=== PATIENT | female | born 1960 | race Two or more races ===

== ENCOUNTER 2019-06-09 01:12 | Emergency (ER) | payer SELFPAY ==
[~2019-06-09] VITALS: Ht 152.4 cm; Wt 47.0 kg
[2019-06-09] MEDS ORDERED: IV NORMAL SALINE 1000ML BAG 1,000 ML IV SCH (02:00)
[2019-06-09 02:12] LABS: BASO % 0 % (0-3); EOS % 0 % (0-3); HEMATOCRIT 37.3 % (36.0-47.0); HEMOGLOBIN 12.6 g/dL (12.0-15.5); LYMPH % 10 % (24-48); MEAN CORPUSCULAR HEMOGLOBIN 28 pg (25-35); MEAN CORPUSCULAR HGB CONC 34 g/dL (31-37); MEAN CORPUSCULAR VOLUME 83 fL (79-100); MONO # 0.8 x10^3/uL (0.0-1.1); MONO % 8 % (0-9); NEUT # 8.5 x10^3/uL (1.8-7.7); NEUT % 82 % (31-73); PLATELET COUNT 327 x10^3/uL (140-400); RED BLOOD COUNT 4.48 x10^6/uL (3.50-5.40); RED CELL DISTRIBUTION WIDTH 12.1 % (11.5-14.5); WHITE BLOOD COUNT 10.4 x10^3/uL (4.0-11.0)
[2019-06-09 02:22] LABS: CALCIUM 8.7 mg/dL (8.5-10.1); CREATININE 0.8 mg/dL (0.6-1.0); GFR 73.7; POTASSIUM 4.1 mmol/L (3.5-5.1)
[2019-06-09 02:28] LABS: ALBUMIN/GLOBULIN RATIO 0.7 (1.0-1.7); TOTAL BILIRUBIN 0.7 mg/dL (0.2-1.0); TOTAL PROTEIN 7.4 g/dL (6.4-8.2)
[2019-06-09] MEDS ORDERED: DICL50TA4 PO (02:37)
--- NOTE | 2019-06-09 02:37 | PHYS DOC ---
Past Medical History Past Medical History: No Pertinent History Smoking Status: Never Smoker Alcohol Use: None General Adult EDM: Chief Complaint: SHORTNESS OF BREATH HPI: HPI: Patient is a 58 year old female who presents with report of cough and some upper back pain for the last couple days. Patient indicates concern that she thinks she may have taken too much of her amoxicillin, having taken 2 doses today. She states that the pain in her upper back is a 4 out of 10. She denies any vomiting or diarrhea. She denies any fever. Patient states that she was recently started on the amoxicillin but doesn't know what was prescribed for. Language interpretation line was utilized; however, history was very difficult to obtain as patient had difficulty in understanding and explaining symptoms to the university services program associate.[] Review of Systems: Review of Systems: Constitutional: Denies fever or chills. [] Respiratory: Positive cough without shortness of breath. [] Cardiovascular: Denies chest pain or edema. [] GI: Denies abdominal pain, nausea, vomiting, bloody stools or diarrhea. [] Musculoskeletal: Complains of upper back pain. [] Integument: Denies rash. [] Neurologic: Denies headache, focal weakness or sensory changes. [] Heart Score: Risk Factors: Risk Factors: DM, Current or recent (<one month) smoker, HTN, HLP, family history of CAD, obesity. Risk Scores: Score 0 - 3: 2.5% MACE over next 6 weeks - Discharge Home Score 4 - 6: 20.3% MACE over next 6 weeks - Admit for Clinical Observation Score 7 - 10: 72.7% MACE over next 6 weeks - Early Invasive Strategies Current Medications: Current Medications Medications (Trade) Dose Ordered Sig/Saulo Start Time Stop Time Status Last Admin Dose Admin Sodium Chloride 1,000 ml @ 1,000 mls/hr Q1H 06/09/19 02:00 06/09/19 02:59 Allergies: Allergies: Allergies Coded Allergies Type Severity Reaction Last Updated Verified Unable to Assess 06/09/19 No Physical Exam: PE: Constitutional: Well developed, well nourished, no acute distress, non-toxic appearance. [] HENT: Normocephalic, atraumatic, bilateral external ears normal, oropharynx moist, no oral exudates, nose normal. [] Eyes: PERRLA, EOMI, conjunctiva normal, no discharge. [] Neck: Normal range of motion, no tenderness, supple, no stridor. [] Cardiovascular: Regular rate and rhythm[] Lungs & Thorax: Bilateral breath sounds clear to auscultation [] Abdomen: Bowel sounds normal, soft, no tenderness. [] Skin: Warm, dry, no erythema, no rash. [] Back: There is tenderness to palpation in the upper thoracic and trapezius musc ulature. [] Extremities: No tenderness, no cyanosis, no clubbing, ROM intact, no edema. [] Neurologic: Awake and alert, no focal deficits noted. [] Current Patient Data: Labs: Laboratory Tests Test 06/09/19 02:00 White Blood Count 10.4 x10^3/uL (4.0-11.0) Red Blood Count 4.48 x10^6/uL (3.50-5.40) Hemoglobin 12.6 g/dL (12.0-15.5) Hematocrit 37.3 % (36.0-47.0) Mean Corpuscular Volume 83 fL (79-100) Mean Corpuscular Hemoglobin 28 pg (25-35) Mean Corpuscular Hemoglobin Concent 34 g/dL (31-37) Red Cell Distribution Width 12.1 % (11.5-14.5) Platelet Count 327 x10^3/uL (140-400) Neutrophils (%) (Auto) 82 % (31-73) H Lymphocytes (%) (Auto) 10 % (24-48) L Monocytes (%) (Auto) 8 % (0-9) Eosinophils (%) (Auto) 0 % (0-3) Basophils (%) (Auto) 0 % (0-3) Neutrophils # (Auto) 8.5 x10^3/uL (1.8-7.7) H Lymphocytes # (Auto) 1.0 x10^3/uL (1.0-4.8) Monocytes # (Auto) 0.8 x10^3/uL (0.0-1.1) Eosinophils # (Auto) 0.0 x10^3/uL (0.0-0.7) Basophils # (Auto) 0.0 x10^3/uL (0.0-0.2) Sodium Level 130 mmol/L (136-145) L Potassium Level 4.1 mmol/L (3.5-5.1) Chloride Level 93 mmol/L (98-107) L Carbon Dioxide Level 26 mmol/L (21-32) Anion Gap 11 (6-14) Blood Urea Nitrogen 12 mg/dL (7-20) Creatinine 0.8 mg/dL (0.6-1.0) Estimated GFR (Cockcroft-Gault) 73.7 BUN/Creatinine Ratio 15 (6-20) Glucose Level 466 mg/dL (70-99) H Calcium Level 8.7 mg/dL (8.5-10.1) Total Bilirubin 0.7 mg/dL (0.2-1.0) Aspartate Amino Transferase (AST) 27 U/L (15-37) Alanine Aminotransferase (ALT) 32 U/L (14-59) Alkaline Phosphatase 108 U/L (46-116) Total Protein 7.4 g/dL (6.4-8.2) Albumin 3.0 g/dL (3.4-5.0) L Albumin/Globulin Ratio 0.7 (1.0-1.7) L Laboratory Tests 06/09/19 02:00 Laboratory Tests 06/09/19 02:00 Vital Signs: Vital Signs Date Time Temp Pulse Resp B/P (MAP) Pulse Ox O2 Delivery O2 Flow Rate FiO2 06/09/19 01:28 98.7 90 16 142/62 (88) 96 Room Air 98.7 EKG: EKG: [] Radiology/Procedures: Radiology/Procedures: [] Course & Med Decision Making: Course & Med Decision Making Pertinent Labs and Imaging studies reviewed. (See chart for details) [] Dragon Disclaimer: Dragsharlene Disclaimer: This electronic medical record was generated, in whole or in part, using a voice recognition dictation system. Departure Departure Impression: Primary Impression: Upper respiratory infection Qualified Codes: J06.9 - Acute upper respiratory infection, unspecified Additional Impressions: Upper back pain Hyperglycemia due to diabetes mellitus Disposition: HOME, SELF-CARE Condition: STABLE Referrals: NOLVIA CATALAN MD (PCP) Patient Instructions: Back Pain, Adult, Type 2 Diabetes Mellitus, Adult, Upper Respiratory Infection, Adult Scripts Diclofenac Sodium (DICLOFENAC SODIUM) 50 Mg Tablet. 1 TAB PO BID PRN for PAIN, #20 TAB Prov: WILVER DONG Jr. DO 06/09/19 WILVER DONG Jr., DO Jun 09, 2019 02:37
[2019-06-09] MEDS ORDERED: AZITHROMYCIN 250 MG TABLET. PO ONE (03:00)
[2019-06-09] MEDS ORDERED: INSULIN REGULAR 100 UNIT/ML 3ML VIAL. IV ONE (03:00)
[2019-06-09] MEDS ORDERED: cefTRIAXone IV Push 1 GM VIAL. IVP ONE (03:00)
[2019-06-09] MEDS ORDERED: AZIT250T PO (04:12)
[2019-06-09 04:45] VITALS: BP 128/75
--- NOTE | 2019-06-09 06:32 | EKG ---
[facility] [address] [place] [address] Test Date: 2019-06-09 Test Time: 01:35:23 Pat Name: REZA GARCIA Department: Room: Gender: F [employer]: : 1960 Requested By: WILVER DONG Order Number: [id number] Reading MD: Marcelo Robert Measurements Intervals Elaine Rate: 97 P: 43 CA: 126 QRS: 36 QRSD: 80 T: 39 QT: 330 QTc: 423 Interpretive Statements SINUS RHYTHM LEFT ATRIAL ABNORMALITY Electronically Signed On 06-09-2019 8:49:15 CDT by Marcelo Robert
--- NOTE | 2019-06-09 09:08 | RAD ---
Examination: PORTABLE CHEST 1V History: Cough Comparison/Correlation: 06/30/2015 AP view of the chest Findings: Upright portable frontal view of the chest was obtained. Heart size is normal. Subtle opacity at the left lateral lower lung clark is present. Subtle interstitial thickening of the lung clark is present a limited pulmonary inflation is noted. Bony structures are unremarkable. Impression: Focal opacity the left lateral lower lung field. Interval follow-up 2 view chest x-ray exam to assess for resolution is recommended. Electronically signed by: Jose Alfredo Roldan MD (06/09/2019 9:05 AM) [id number]
== END 2019-06-09 04:55 | disposition home or self-care (01) ==
LOC: ER 01:12
DX: J06.9 Acute upper respiratory infection, unspecified (principal); M54.6 Pain in thoracic spine; R05 Cough; E11.65 Type 2 diabetes mellitus with hyperglycemia
CPT/HCPCS: 36415; 71045; 80053; 82962; 85025; 93005; 96361; 96374; 96375; 99285; J0696; J1815; J7030

== ENCOUNTER 2020-02-11 16:06 | Emergency (ER) | payer BC ==
[~2020-02-11] VITALS: Ht 149.9 cm; Wt 47.2 kg
[~2020-02-11 16:06] MED LIST: AZIT250T PO; DICL50TA4 PO
[2020-02-11 16:25] VITALS: BP 128/58
[2020-02-11] MEDS ORDERED: NAPROXEN 500 MG TABLET PO STA (16:41)
[2020-02-11] MEDS ORDERED: DIPH,PERTUSS(ACELL),TET VAC/PF 0.5 ML SYRINGE. VAX IM ONE (16:45)
[2020-02-11] MEDS ORDERED: HYDROcodone/APAP 5/325MG 1 TAB TABLET PO ONE (16:45)
[2020-02-11] MEDS ORDERED: HYDR-3164 PO (16:48)
[2020-02-11] MEDS ORDERED: SULF1TAB24 PO (16:48)
[2020-02-11] MEDS ORDERED: NAPR-514 PO (16:48)
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
[2020-02-11] MEDS ORDERED: SMZ/TMP 800/160MG TABLET. PO ONE (17:00)
== END 2020-02-11 17:07 | disposition home or self-care (01) ==
LOC: ER 16:06
DX: L03.011 Cellulitis of right finger (principal); E11.9 Type 2 diabetes mellitus without complications
CPT/HCPCS: 10060; 90471; 90715; 99284-25

== ENCOUNTER 2020-02-22 12:55 | Inpatient (IN) | payer BC ==
[~2020-02-22] VITALS: Ht 162.6 cm; Wt 48.0 kg
[~2020-02-22 12:55] MED LIST changes: +HYDR-3164 PO; +NAPR-514 PO; +SULF1TAB24 PO
[2020-02-22] MEDS ORDERED: IV NORMAL SALINE 1000ML BAG 1,000 ML IV ONE (15:15)
[2020-02-22 15:30] LABS: BASO % 0 % (0-3); EOS # 0.2 x10^3/uL (0.0-0.7); EOS % 3 % (0-3); HEMATOCRIT 40.4 % (36.0-47.0); HEMOGLOBIN 13.7 g/dL (12.0-15.5); LYMPH # 2.9 x10^3/uL (1.0-4.8); LYMPH % 32 % (24-48); MEAN CORPUSCULAR HEMOGLOBIN 28 pg (25-35); MEAN CORPUSCULAR HGB CONC 34 g/dL (31-37); MEAN CORPUSCULAR VOLUME 84 fL (79-100); MONO # 0.5 x10^3/uL (0.0-1.1); MONO % 6 % (0-9); NEUT # 5.3 x10^3/uL (1.8-7.7); NEUT % 59 % (31-73); PLATELET COUNT 275 x10^3/uL (140-400); RED BLOOD COUNT 4.83 x10^6/uL (3.50-5.40); RED CELL DISTRIBUTION WIDTH 12.1 % (11.5-14.5)
[2020-02-22] MEDS ORDERED: VANCOMYCIN PER PHARMACY MC PRN ×2 (15:30→23:45)
[2020-02-22 15:56] LABS: ANION GAP 10 (6-14); BLOOD UREA NITROGEN 8 mg/dL (7-20); BUN/CREATININE RATIO 16 (6-20); CALCIUM 9.2 mg/dL (8.5-10.1); CARBON DIOXIDE 25 mmol/L (21-32); CHLORIDE 98 mmol/L (98-107); CREATININE 0.5 mg/dL (0.6-1.0); GFR 126.3; GLUCOSE 306 mg/dL (70-99); POTASSIUM 4.2 mmol/L (3.5-5.1); SODIUM 133 mmol/L (136-145)
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
[2020-02-22] MEDS ORDERED: VANCOMYCIN 1.25 GM in IV NORMAL SALINE 250ML 250 ML IV ONE (16:00)
[2020-02-22 16:19] LABS: ALBUMIN 3.9 g/dL (3.4-5.0); ALBUMIN/GLOBULIN RATIO 1.1 (1.0-1.7); ALK PHOS 122 U/L (46-116); ALT (SGPT) 28 U/L (14-59); AST (SGOT) 19 U/L (15-37); TOTAL BILIRUBIN 0.5 mg/dL (0.2-1.0); TOTAL PROTEIN 7.5 g/dL (6.4-8.2)
[2020-02-22 16:24] LABS: C-REACTIVE PROTEIN < 0.5 mg/L (0-3.3)
[2020-02-22] MEDS ORDERED: CLINDAMYCIN 600MG PREMIX 50 ML IV ONE (16:30)
[2020-02-22 16:36] LABS: BILIRUBIN,URINE NEGATIVE (NEG); CLARITY,URINE CLEAR; COLOR,URINE YELLOW; NITRITE,URINE NEGATIVE (NEG); PROTEIN,URINE NEGATIVE (NEG-TRACE); UROBILINOGEN,URINE 0.2 mg/dL (0.2 mg/dL)
[2020-02-22 16:53] LABS: BACTERIA,URINE 0 /HPF (0-FEW); RBC,URINE 0 /HPF (0-2)
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
[2020-02-22] MEDS ORDERED: PIPERACILLIN/TAZOBACTAM 3.375 GM in IV NORMAL SALINE 50ML 50 ML IV ONE (18:00)
[2020-02-22] MEDS ORDERED: ONDANSETRON PF 4 MG/2 ML VIAL. IV PRN ×2 (18:00→23:45)
[2020-02-22] MEDS: IV NORMAL SALINE 1000ML BAG 1,000 ML IV SCH (18:30)
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
--- NOTE | 2020-02-22 19:26 | NUR ---
Pharmacy Vancomycin Dosing Note S:Consulted to monitor and dose vancomycin started 02/22/20. O:REZA GARCIA is a 59 year old F with Osteomyelitis Height: 4 feet, 5 inches Weight: 45.5 kg [place] Body Weight: 29.40 Adjusted Body Weight: 35.84 Dosing Weight: Actual Other Antibiotics: LABS: Last BUN: 8 Last Creatinine: 0.5 Creatinine Clearance: 85 mL/min Last WBC: 9 Last Procalcitonin: Tmax (past 24 hours): 97.6 Microbiology: I/O: 1300/- Drug Levels: Last level: on at Last dose given 02/22/20 at 1552 Vancomycin Dosing: Loading Dose: 1250 mg x1 Dosing Weight: Actual Target Trough: 15-20 A: Based on: weight and renal function P: 1. Begin Vancomycin 750 mg IV q12h 2. Follow up Trough level on 02/24/20 at 1530 3. Pharmacy will continue to monitor, follow and adjust therapy as needed. Re Chinchilla RPH, 02/22/20 [id number]
[2020-02-22 20:25] VITALS: BP 111/60
[2020-02-22 23:29] VITALS: BP 105/55
[2020-02-22] MEDS ORDERED: PIP/TAZO PER PHARMACY MC PRN (23:45)
[2020-02-22] MEDS: INSULIN GLARGINE SYRINGE. SQ SCH (23:45)
[2020-02-22] MEDS ORDERED: DEXTROSE 50% 25 GM / 50ML DISP.SYRIN. IV PRN (23:45)
[2020-02-23] VITALS (9 sets, daily range): BP systolic 95–143; BP diastolic 51–69
--- NOTE | 2020-02-23 00:32 | NUR ---
Patient admitted to room 428. Picture taken of right middle finger. Patient states that she has not had a previous wound. Patient stated that the skin on her finger tips crack alot during her shift. 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 Patient states she does not take insulin at home. Patient states she is suppose to be taking another medication for diabetes that is 10mg daily but has been unable to get that medication filled. Patient states she changes the dose of her metformin to 1500mg twice a day to try and manage her diabetes better. Patient educated on policies and procedures of unit. Patient primarily speaks iraqi. Patient verbalized understanding of education provided. Will continue to monitor.
[2020-02-23] MEDS: PIPERACILLIN/TAZOBACTAM 3.375 GM in IV NORMAL SALINE 50ML 50 ML IV SCH ×4 (01:13→17:15)
[2020-02-23] MEDS: IV NORMAL SALINE 1000ML BAG 1,000 ML IV SCH ×2 (02:00→12:02)
[2020-02-23] MEDS ORDERED: INFLUENZA VAX SCREEN BY RX. MC PRN (02:45)
[2020-02-23] MEDS ORDERED: LEVO-101 PO (02:54)
[2020-02-23] MEDS ORDERED: METF100010 PO (02:54)
[2020-02-23] MEDS: VANCOMYCIN 750 MG in IV NORMAL SALINE 250ML 250 ML IV SCH ×2 (04:30→15:14)
[2020-02-23] MEDS: INSULIN LISPRO 100 UNIT/ML 3ML VIAL for OP,RR ONLY. SQ PRN ×2 (07:19→10:33)
[2020-02-23] MEDS ORDERED: fentaNYL PF VIAL 100 MCG/2 ML VIAL ONE ×3 (07:19→07:50)
[2020-02-23] MEDS ORDERED: LIDOCAINE 2% PF 5 ML VIAL. ONE (07:24)
[2020-02-23] MEDS ORDERED: PROPOFOL 10 MG/ML (20ML) VIAL. IV ONE (07:24)
[2020-02-23] MEDS ORDERED: BUPIVACAINE-EPI 0.25%-1:200000 MPF 30 ML VIAL. INJ ONE (07:30)
[2020-02-23] MEDS ORDERED: fentaNYL PF VIAL 100 MCG/2 ML VIAL IV PRN ×3 (07:30→10:00)
[2020-02-23 07:43] LABS: CREATININE 0.6 mg/dL (0.6-1.0); GFR 102.3
[2020-02-23] MEDS: fentaNYL PF VIAL 100 MCG/2 ML VIAL IV PRN (07:53)
[2020-02-23] MEDS: INSULIN LISPRO 300 UNITS/3 ML VIAL. SQ SCH ×3 (08:00→17:22)
[2020-02-23] MEDS ORDERED: DEXAMETHASONE SOD PHOS 4 MG/ML VIAL ONE (09:02)
[2020-02-23] MEDS ORDERED: ONDANSETRON PF 4 MG/2 ML VIAL. ONE (09:02)
[2020-02-23] MEDS ORDERED: SEVOFLURANE 61 TO 120 MINUTES. IH ONE (09:09)
--- NOTE | 2020-02-23 09:52 | NUR ---
SW following. Discussed with RN, pt from home, room air, NPO, rapid COVID-19 negative. Pt having an I&D this morning. SW will continue to follow.
[2020-02-23] MEDS ORDERED: IV RINGERS,LACTATED 1000ML 1,000 ML IV SCH (10:00)
[2020-02-23] MEDS ORDERED: HYDROmorphone 2 MG/ML VIAL IV PRN (10:00)
[2020-02-23] MEDS ORDERED: ONDANSETRON PF 4 MG/2 ML VIAL. IV PRN (10:00)
[2020-02-23] MEDS ORDERED: PROCHLORPERAZINE 10 MG/2 ML VIAL. IV PRN (10:00)
[2020-02-23] MEDS ORDERED: MORPHINE SULFATE 2 MG/ML VIAL. IV PRN (10:00)
[2020-02-23] MEDS ORDERED: LIDOCAINE 1% PF 2 ML VIAL. ID PRN (10:00)
--- NOTE | 2020-02-23 10:40 | PDOC4 ---
Operative Note Operative Note Date of Procedure: February 23, 2020 Pre-Op Diagnosis: Acute hematogenous osteomyelitis, right hand, (right middle finger distal phalanx) M86.041 Post-Op Diagnosis: Same Procedure: Right middle finger, primary amputation, distal interphalangeal joint with neurectomies and direct closure. CPT 68441 Surgeon: Shaun Rodriguez MD Anesthesia: General EBL: 10 mL Specimens Obtained: Cultures aerobic and anaerobic with Gram stain. Fingertip for permanent specimen. 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 She started having trouble with her finger at work in January, approximately Feb 04, with increasing pain and swelling, and said she tried several times to report this at her work. She went on a Friday evening and the workers office was closed. She again went on Friday to reported and they were closed. 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 She said the riprap placing supervisor refused to fill out any paperwork and ultimately assigned her to a different job detail so that the fingertip problem did not interfere with her work as much. She has had increasing pain and swelling in the last few days, and came to the emergency room. She was admitted yesterday with necrosis of the fingertip and osteomyelitis seen on x-ray. She is on intravenous antibiotics. I examined her and spoke to her in detail today 02/23/2020. She has nonviable tissue at the fingertip and extensive bone osteomyelitis of the fingertip. Initially I thought a debridement might be useful but on further examination I don't think that will be successful and ultimately she will require fingertip amputation to resolve the infection and allow closure of the wound. I spoke to her today in detail about fingertip amputation via the shank tapper, and recommended distal interphalangeal joint partial finger amputation, with the direct closure and neurectomies. This should resolve the infection quickly and allow her to return to work more quickly, and prevent prolonged and probably unsuccessful treatment with debridement alone. We talked about the potential risks and the cosmetic deformity and I showed her photographs from the Internet of the healed fingertip amputation. All of her questions about surgery were answered and she desired to proceed. Written consent was obtained. The surgical site was marked by . Procedure in Detail: The patient was identified in the preoperative holding area. The correct right middle finger was marked by me. The patient was taken to the operating room where general anesthesia was used. The patient was positioned supine on the operating table with the arm extended on an arm board. A timeout procedure was performed. The limb was prepared in sterile fashion with Betadine. Sterile drapes were applied. A Matteo tourniquet was used around the base of the finger and secured with a hemostat. A 15 blade was used to make an incision in the distal phalanx, and the portion of the finger to be amputated, and purulent drainage was noted. Cultures were taken. [place] flaps were then planned with a skin marker, and then created with a 15 blade scalpel. Sharp dissection was used, and the interphalangeal joint was disarticulated with a 15 blade scalpel. Additional purulent material and debridement was performed with rongeurs and with a 15 blade scalpel. Betadine lavage was used. Copious saline irrigation was used. The skin flaps were now trimmed and fashioned for an ultimately smooth tension- free cosmetic closure. The tourniquet was released. Electrocautery was used for hemostasis. 0.25% Marcaine with epinephrine was injected at the skin edges, as well as in a digital block fashion. Copious saline irrigation was again used. The fingertip was now closed in a single layer with #4-0 Prolene interrupted sutures, with complete closure. I then applied Xeroform, and TubeGauze. Needle and sponge counts were correct. There were no apparent complications. SHAUN RODRIGUEZ MD Feb 23, 2020 10:40
[2020-02-23] MEDS: MULTIVITAMIN with MINERAL TABLET. PO SCH (12:06)
[2020-02-23] MEDS ORDERED: FLU VACC QS 2020-21(6MOS+)/PF 0.5 ML SYRINGE. VAX IM ONE (18:30)
[2020-02-23] MEDS: INSULIN GLARGINE SYRINGE. SQ SCH (21:00)
--- NOTE | 2020-02-23 23:05 | PDOC ---
PROGRESS NOTES Date of Service: DATE: 02/23/20 TIME: 2100 Chief Complaint Chief Complaint Right 3rd finger cellulitis - with abscess. Will likely need surgical I&D. Pain control, Add zosyn for gram negative coverage, cont vancomycin. 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 She states that sharp and shooting. Notes the dorsum of finger and now her hand are red, swollen, hot, and having sharp shooting pains. Patient was seen for this on February 10 and given bactrim for paronychia. Patient rates her pain at 9 out of 10. Patient denies fevers, nausea or vomiting, chills. Right Hand radiograph with absent cortex along the proximal radial aspect of the third distal phalanx with overlying soft tissue swelling, concerning for osteomyelitis. Labs with WBC 9, Hb 13.7, platelets 275, Na 133, K 4.2, BUN 8, Cr 0.5, Lactate 1.5, glucose 306. Admitted for further treatment. 02/23: patient tolerated procedure well, no other complaints other than feeling her fingertips are getting dry and cracking. No fever or chills, pain seems to be well tolerated Vitals Vitals Vital Signs Date Time Temp Pulse Resp B/P (MAP) Pulse Ox O2 Delivery O2 Flow Rate FiO2 02/23/20 19:00 98.6 82 16 107/62 (77) 97 Room Air 98.6 02/23/20 09:45 5 Physical Exam General: Alert, Cooperative Heart: Regular rate Abdomen: Soft Extremities: Other (The right middle finger has necrosis at the fingertip. There is swelling and tenderness. There is loss of fingertip sensation. There is friable skin and slight purulent drainage. There is no flexor tenosynovitis or Knavel signs other than the swelling at the fingertip.) Skin: No breakdown, No significant lesion, Other (Posterior hand is pink in color and right tip of the middle fingertip from tip of the finger down to to DIP has peeling skin, redness, paleness, black spot that is about dime sized. Radial pulses strong and present. Patient can barely bend the finger due to swelling. Skin is otherwise pink warm and dry. ) Labs LABS Laboratory Tests Test 02/23/20 05:50 02/23/20 07:13 02/23/20 08:42 02/23/20 10:30 Creatinine 0.6 mg/dL (0.6-1.0) Estimated GFR (Cockcroft-Gault) 102.3 Glucose (Fingerstick) 296 mg/dL (70-99) 213 mg/dL (70-99) 213 mg/dL (70-99) Test 02/23/20 13:09 02/23/20 16:32 02/23/20 20:11 Glucose (Fingerstick) 237 mg/dL (70-99) 303 mg/dL (70-99) 292 mg/dL (70-99) Assessment and Plan Assessmemt and Plan Problems Medical Problems: (1) Osteomyelitis Status: Acute Comment Review of Relevant I have reviewed the following items vangie (where applicable) has been applied. Labs Laboratory Tests Test 02/22/20 14:45 02/22/20 16:25 02/22/20 19:30 02/23/20 05:50 White Blood Count 9.0 x10^3/uL (4.0-11.0) Red Blood Count 4.83 x10^6/uL (3.50-5.40) Hemoglobin 13.7 g/dL (12.0-15.5) Hematocrit 40.4 % (36.0-47.0) Mean Corpuscular Volume 84 fL (79-100) Mean Corpuscular Hemoglobin 28 pg (25-35) Mean Corpuscular Hemoglobin Concent 34 g/dL (31-37) Red Cell Distribution Width 12.1 % (11.5-14.5) Platelet Count 275 x10^3/uL (140-400) Neutrophils (%) (Auto) 59 % (31-73) Lymphocytes (%) (Auto) 32 % (24-48) Monocytes (%) (Auto) 6 % (0-9) Eosinophils (%) (Auto) 3 % (0-3) Basophils (%) (Auto) 0 % (0-3) Neutrophils # (Auto) 5.3 x10^3/uL (1.8-7.7) Lymphocytes # (Auto) 2.9 x10^3/uL (1.0-4.8) Monocytes # (Auto) 0.5 x10^3/uL (0.0-1.1) Eosinophils # (Auto) 0.2 x10^3/uL (0.0-0.7) Basophils # (Auto) 0.0 x10^3/uL (0.0-0.2) Sodium Level 133 mmol/L (136-145) Potassium Level 4.2 mmol/L (3.5-5.1) Chloride Level 98 mmol/L (98-107) Carbon Dioxide Level 25 mmol/L (21-32) Anion Gap 10 (6-14) Blood Urea Nitrogen 8 mg/dL (7-20) Creatinine 0.5 mg/dL (0.6-1.0) 0.6 mg/dL (0.6-1.0) Estimated GFR (Cockcroft-Gault) 126.3 102.3 BUN/Creatinine Ratio 16 (6-20) Glucose Level 306 mg/dL (70-99) Lactic Acid Level 1.5 mmol/L (0.4-2.0) Calcium Level 9.2 mg/dL (8.5-10.1) Total Bilirubin 0.5 mg/dL (0.2-1.0) Aspartate Amino Transf (AST/SGOT) 19 U/L (15-37) Alanine Aminotransferase (ALT/SGPT) 28 U/L (14-59) Alkaline Phosphatase 122 U/L (46-116) C-Reactive Protein, Quantitative < 0.5 mg/L (0-3.3) Total Protein 7.5 g/dL (6.4-8.2) Albumin 3.9 g/dL (3.4-5.0) Albumin/Globulin Ratio 1.1 (1.0-1.7) Urine Collection Type Unknown Urine Color Yellow Urine Clarity Clear Urine pH 6.0 (<5.0-8.0) Urine Specific Ary 1.010 (1.000-1.030) Urine Protein Negative mg/dL (NEG-TRACE) Urine Glucose (UA) >=1000 mg/dL (NEG) Urine Ketones (Stick) Negative mg/dL (NEG) Urine Blood Negative (NEG) Urine Nitrite Negative (NEG) Urine Bilirubin Negative (NEG) Urine Urobilinogen Dipstick 0.2 mg/dL (0.2 mg/dL) Urine Leukocyte Esterase Small (NEG) Urine RBC 0 /HPF (0-2) Urine WBC 1-4 /HPF (0-4) Urine Squamous Epithelial Cells Mod /LPF Urine Renal Epithelial Cells Occ /LPF Urine Bacteria 0 /HPF (0-FEW) SARS-CoV-2 Antigen (Rapid) Negative (NEGATIVE) Test 02/23/20 07:13 02/23/20 08:42 02/23/20 10:30 02/23/20 13:09 Glucose (Fingerstick) 296 mg/dL (70-99) 213 mg/dL (70-99) 213 mg/dL (70-99) 237 mg/dL (70-99) Test 02/23/20 16:32 02/23/20 20:11 Glucose (Fingerstick) 303 mg/dL (70-99) 292 mg/dL (70-99) Laboratory Tests Test 02/23/20 05:50 02/23/20 07:13 02/23/20 08:42 02/23/20 10:30 Creatinine 0.6 mg/dL (0.6-1.0) Estimated GFR (Cockcroft-Gault) 102.3 Glucose (Fingerstick) 296 mg/dL (70-99) 213 mg/dL (70-99) 213 mg/dL (70-99) Test 02/23/20 13:09 02/23/20 16:32 02/23/20 20:11 Glucose (Fingerstick) 237 mg/dL (70-99) 303 mg/dL (70-99) 292 mg/dL (70-99) Microbiology 02/23/20 Gram Stain - Final, Resulted 02/23/20 Aerobic and Anaerobic Culture, Resulted Pending 02/22/20 Blood Culture - Preliminary, Resulted NO GROWTH AFTER 1 DAY Medications Current Medications Sodium Chloride 1,000 ml @ 1,000 mls/hr 1X ONCE IV Last administered on 02/22/20at 15:16; Start 02/22/20 at 15:15; Stop 02/22/20 at 16:14; Status DC Vancomycin HCl (Vanco Per Pharmacy) 1 each PRN DAILY PRN MC SEE COMMENTS Last administered on 02/22/20at 19:18; Start 02/22/20 at 15:30 Vancomycin HCl 1.25 gm/Sodium Chloride 250 ml @ 166.667 mls/hr 1X ONCE IV Last administered on 02/22/20at 15:52; Start 02/22/20 at 16:00; Stop 02/22/20 at 17:29; Status DC Clindamycin Phosphate 50 ml @ 100 mls/hr 1X ONCE IV Last administered on 02/22/20at 16:42; Start 02/22/20 at 16:30; Stop 02/22/20 at 16:59; Status DC Ondansetron HCl (Zofran) 4 mg PRN Q8HRS PRN IV NAUSEA/VOMITING; Start 02/22/20 at 18:00; Stop 02/22/20 at 23:35; Status DC Fentanyl Citrate (Fentanyl 2ml Vial) 50 mcg PRN Q1HR PRN IV SEVERE PAIN 7-10 Last administered on 02/23/20at 07:53; Start 02/22/20 at 18:00 Sodium Chloride 1,000 ml @ 125 mls/hr Q8H IV Last administered on 02/23/20at 12:02; Start 02/22/20 at 18:00; Stop 02/23/20 at 17:59; Status DC Piperacillin Sod/ Tazobactam Sod 3.375 gm/Sodium Chloride 50 ml @ 100 mls/hr 1X ONCE IV Last administered on 02/22/20at 18:27; Start 02/22/20 at 18:00; Stop 02/22/20 at 18:29; Status DC Vancomycin HCl 750 mg/Sodium Chloride 250 ml @ 250 mls/hr Q12H IV Last administered on 02/23/20at 15:14; Start 02/23/20 at 04:00 Ondansetron HCl (Zofran) 4 mg PRN Q4HRS PRN IV NAUSEA/VOMITING 1ST CHOICE Last administered on 02/23/20at 12:06; Start 02/22/20 at 23:45 Insulin Glargine (Lantus Syringe) 8 unit QHS SQ Last administered on 02/23/20at 21:00; Start 02/22/20 at 23:45 Insulin Human Lispro (HumaLOG) 0-9 UNITS TIDWMEALS SQ Last administered on 02/23/20at 17:22; Start 02/23/20 at 08:00 Dextrose (Dextrose 50%-Water Syringe) 12.5 gm PRN Q15MIN PRN IV SEE COMMENTS; Start 02/22/20 at 23:45 Vancomycin HCl (Vanco Per Pharmacy) 1 each PRN DAILY PRN MC SEE COMMENTS; Start 02/22/20 at 23:45; Stop 02/22/20 at 23:56; Status DC Piperacillin Sod/ Tazobactam Sod (Zosyn Per Pharmacy) 1 each PRN DAILY PRN MC SEE COMMENTS; Start 02/22/20 at 23:45 Tramadol HCl (Ultram) 50 mg PRN Q6HRS PRN PO MODERATE PAIN 4-6; Start 02/22/20 at 23:45 Piperacillin Sod/ Tazobactam Sod 3.375 gm/Sodium Chloride 50 ml @ 100 mls/hr Q6HRS IV Last administered on 02/23/20at 17:15; Start 02/23/20 at 00:00 Info (FLU VACCINE SCREEN per RX) 1 each PRN DAILY PRN MC SEE COMMENTS; Start 02/23/20 at 02:45; Status Cancel Bupivacaine HCl/ Epinephrine Bitart (Sensorcaine-Epi 0.25%-1:241248 Mpf) 30 ml 1X ONCE INJ Last administered on 02/23/20at 09:01; Start 02/23/20 at 07:30; Stop 02/23/20 at 07:32; Status DC Insulin Human Lispro (HumaLOG VIAL for OP,RR ONLY) 0-10 units PRN Q1HR PRN SQ PER PROTOCOL Last administered on 02/23/20at 10:33; Start 02/23/20 at 07:30; Stop 02/24/20 at 07:29 Fentanyl Citrate (Fentanyl 2ml Vial) 100 mcg STK-MED ONCE .ROUTE ; Start 02/23/20 at 07:19; Stop 02/23/20 at 07:19; Status DC Fentanyl Citrate (Fentanyl 2ml Vial) 100 mcg STK-MED ONCE .ROUTE ; Start 02/23/20 at 07:23; Stop 02/23/20 at 07:24; Status DC Lidocaine HCl (Lidocaine Pf 2% Vial) 5 ml STK-MED ONCE .ROUTE ; Start 02/23/20 at 07:24; Stop 02/23/20 at 07:24; Status DC Propofol (Diprivan) 200 mg STK-MED ONCE IV ; Start 02/23/20 at 07:24; Stop 02/23/20 at 07:24; Status DC Fentanyl Citrate (Fentanyl 2ml Vial) 25 mcg PRN Q5MIN PRN IV X 2 DOSES FOR PAIN Last administered on 02/23/20at 07:15; Start 02/23/20 at 07:30; Stop 02/23/20 at 12:00; Status DC Fentanyl Citrate (Fentanyl 2ml Vial) 100 mcg STK-MED ONCE .ROUTE ; Start 02/23/20 at 07:50; Stop 02/23/20 at 07:50; Status DC Ephedrine Sulfate (Akovaz) 50 mg STK-MED ONCE .ROUTE ; Start 02/23/20 at 08:53; Stop 02/23/20 at 08:53; Status DC Dexamethasone Sodium Phosphate (Decadron) 4 mg STK-MED ONCE .ROUTE ; Start 02/23/20 at 09:02; Stop 02/23/20 at 09:02; Status DC Ondansetron HCl (Zofran) 4 mg STK-MED ONCE .ROUTE ; Start 02/23/20 at 09:02; Stop 02/23/20 at 09:02; Status DC Sevoflurane (Ultane) 60 ml STK-MED ONCE IH ; Start 02/23/20 at 09:09; Stop 02/23/20 at 09:09; Status DC Ondansetron HCl (Zofran) 4 mg PRN Q6HRS PRN IV NAUSEA/VOMITING; Start 02/23/20 at 10:00; Stop 02/23/20 at 20:00; Status DC Fentanyl Citrate (Fentanyl 2ml Vial) 25 mcg PRN Q5MIN PRN IV MILD PAIN 1-3; Start 02/23/20 at 10:00; Stop 02/23/20 at 20:00; Status DC Fentanyl Citrate (Fentanyl 2ml Vial) 50 mcg PRN Q5MIN PRN IV MODERATE TO SEVERE PAIN Last administered on 02/23/20at 09:45; Start 02/23/20 at 10:00; Stop 02/23/20 at 20:00; Status DC Morphine Sulfate (Morphine Sulfate) 1 mg PRN Q10MIN PRN IV SEVERE PAIN 7-10; Start 02/23/20 at 10:00; Stop 02/24/20 at 09:59 Ringer's Solution 1,000 ml @ 30 mls/hr Q24H IV ; Start 02/23/20 at 10:00; Stop 02/23/20 at 21:59; Status DC Lidocaine HCl (Xylocaine-Mpf 1% 2ml Vial) 2 ml PRN 1X PRN ID PRIOR TO IV START; Start 02/23/20 at 10:00; Stop 02/23/20 at 20:00; Status DC Hydromorphone HCl (Dilaudid) 0.5 mg PRN Q10MIN PRN IV SEV PAIN, Second choice; Start 02/23/20 at 10:00; Stop 02/23/20 at 20:00; Status DC Prochlorperazine Edisylate (Compazine) 5 mg PACU PRN PRN IV NAUSEA, MRX1; Start 02/23/20 at 10:00; Stop 02/23/20 at 20:00; Status DC Multivitamins (Thera M Plus) 1 tab DAILY PO Last administered on 02/23/20at 12:06; Start 02/23/20 at 12:00 Influenza Virus Vaccine Quadrival (Fluzone Quad Syringe) 0.5 ml ONCE ONCE VAX IM ; Start 02/23/20 at 18:30; Stop 02/23/20 at 18:35; Status DC Active Scripts Active Naproxen 500 Mg Tablet 1 Tab PO BID [place] 5-325 Tablet (Acetaminophen/Hydrocodone Bitart) 1 Each Tablet 1 Tab PO Q6- 8HRS PRN Bactrim Ds Tablet (Sulfamethoxazole/Trimethoprim) 1 Each Tablet 1 Tab PO BID 10 Days Zithromax (Azithromycin) 250 Mg Tablet 1 Pkg PO UD Diclofenac Sodium 50 Mg Tablet. 1 Tab PO BID PRN Reported Synthroid (Levothyroxine Sodium) 100 Mcg Tablet 1 Tab PO DAILY Metformin Hcl Er (Metformin Hcl) 1,000 Mg Tab.er.24 1,000 Mg PO BIDAC Vitals/I & O Vital Sign - Last 24 Hours 02/23/20 02/23/20 02/23/20 02/23/20 07:11 07:15 07:53 08:00 Temp 97.6 97.6 Pulse 62 Resp 15 15 15 B/P (MAP) 141/68 Pulse Ox 98 98 98 O2 Delivery Room Air Room Air Room Air Room Air 02/23/20 02/23/20 02/23/20 02/23/20 09:29 09:29 09:45 09:45 Temp 97.6 97.6 97.6 97.6 Pulse 76 79 Resp 16 15 16 B/P (MAP) 122/54 138/63 Pulse Ox 100 95 100 O2 Delivery Mask Simple Mask Room Air Simple Mask O2 Flow Rate 5 5 5 02/23/20 02/23/20 02/23/20 02/23/20 10:00 10:15 10:30 10:50 Temp 97.6 97.6 97.6 98.2 97.6 97.6 97.6 98.2 Pulse 93 82 73 79 Resp 16 15 15 18 B/P (MAP) 143/67 155/65 152/73 131/51 (77) Pulse Ox 96 95 95 96 O2 Delivery Room Air Room Air Room Air Room Air 02/23/20 02/23/20 02/23/20 02/23/20 11:05 11:20 11:35 11:50 Pulse 78 81 78 70 B/P (MAP) 134/59 (84) 142/69 (93) 143/68 (93) 134/58 (83) Pulse Ox 94 94 95 95 O2 Delivery Room Air Room Air Room Air 02/23/20 02/23/20 15:00 19:00 Temp 98.2 98.6 98.2 98.6 Pulse 76 82 Resp 18 16 B/P (MAP) 110/65 (80) 107/62 (77) Pulse Ox 94 97 O2 Delivery Room Air Room Air Intake and Output 02/23/20 02/23/20 02/24/20 14:00 22:00 06:00 Intake Total 1250 ml 100 ml Output Total 10 ml Balance 1240 ml 100 ml Nutrition Consultation Dietary Evaluation: Recommendations by RD: Dietary education by RD, Increase Calorie Intake, Protein supplementation Comments: REC Glucerna bid cookie bid continue mvi Expected Outcomes/Goals: to meet >75% est nutr needs Malnutrition Findings: Body Fat Depletion (Non Severe: Mild Depletion Weight Status: Underweight Justicifation of Admission Dx: Justifications for Admission: Justification of Admission Dx: Comment: (osteomyelitis) JOSELITO HI MD Feb 23, 2020 23:05
[2020-02-24] MEDS: PIPERACILLIN/TAZOBACTAM 3.375 GM in IV NORMAL SALINE 50ML 50 ML IV SCH ×5 (00:06→23:33)
[2020-02-24] MEDS: fentaNYL PF VIAL 100 MCG/2 ML VIAL IV PRN ×3 (02:59→11:49)
[2020-02-24 03:01] VITALS: BP 109/61
[2020-02-24 07:00] VITALS: BP 117/67
[2020-02-24] MEDS: VANCOMYCIN 750 MG in IV NORMAL SALINE 250ML 250 ML IV SCH (07:02)
[2020-02-24] MEDS: MULTIVITAMIN with MINERAL TABLET. PO SCH (07:55)
[2020-02-24] MEDS: INSULIN LISPRO 300 UNITS/3 ML VIAL. SQ SCH ×3 (08:01→17:00)
[2020-02-24 08:43] LABS: CREATININE 0.5 mg/dL (0.6-1.0); GFR 126.3
--- NOTE | 2020-02-24 09:43 | NUR ---
SW following. Discussed with RN, pt from home, room air, ada diet. Pt went for I&D yesterday but ended up having the tip of finger amputated. Currently on IV abx - awaiting determination of whether pt will need prison IV abx upon discharge. ID not consulted. SW will continue to follow.
[2020-02-24] MEDS: traMADol 50 MG TABLET PO PRN ×2 (10:12→19:05)
[2020-02-24 11:00] VITALS: BP 151/88
--- NOTE | 2020-02-24 13:51 | NUR ---
Provider paged multiple times over head and by you call. Provider has not called back. Addendum: 02/24/20 at 1354 by PREMA ANGELO RN RN Amended: Links added.
[2020-02-24 15:00] VITALS: BP 115/67
[2020-02-24 15:46] LABS: VANC TR 9.4 mcg/mL (10.0-20.0)
--- NOTE | 2020-02-24 16:14 | PDOC ---
PROGRESS NOTES Date of Service: DATE: 02/24/20 TIME: 16:12 Chief Complaint Chief Complaint Right 3rd finger cellulitis - with abscess.Gram positive rods growing on cultures DM2 - sliding scale, lantus Hyponatremia - likely hypovolemic, will hydrate Hypoglycemic event Plan: We will adjust insulin to prevent further hypoglycemic event will discontinue vancomycin We will wait for final cultures and tailor antibiotic therapy accordingly will may to request MID line sicne she will need iv therapy most likely FEN - diabetic diet PPX - lovenox FULL CODE Dispo -inpatient for outpatient failure of right hand cellulitis History of Present Illness History of Present Illness History of Present Illness Ms Maldonado is a 59 year old female 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 She states that sharp and shooting. Notes the dorsum of finger and now her hand are red, swollen, hot, and having sharp shooting pains. Patient was seen for this on February 10 and given bactrim for paronychia. Patient rates her pain at 9 out of 10. Patient denies fevers, nausea or vomiting, chills. Right Hand radiograph with absent cortex along the proximal radial aspect of the third distal phalanx with overlying soft tissue swelling, concerning for osteomyelitis. Labs with WBC 9, Hb 13.7, platelets 275, Na 133, K 4.2, BUN 8, Cr 0.5, Lactate 1.5, glucose 306. Admitted for further treatment. 02/23: patient tolerated procedure well, no other complaints other than feeling her fingertips are getting dry and cracking. No fever or chills, pain seems to be well tolerated Vitals Vitals Vital Signs Date Time Temp Pulse Resp B/P (MAP) Pulse Ox O2 Delivery O2 Flow Rate FiO2 02/24/20 15:00 98.9 73 16 115/67 (83) 99 Room Air 98.9 02/23/20 09:45 5 Physical Exam General: Alert, Cooperative Heart: Regular rate Abdomen: Soft Extremities: Other (The right middle finger has necrosis at the fingertip. There is swelling and tenderness. There is loss of fingertip sensation. There is friable skin and slight purulent drainage. There is no flexor tenosynovitis or Knavel signs other than the swelling at the fingertip.) Skin: No breakdown, No significant lesion, Other (Posterior hand is pink in color and right tip of the middle fingertip from tip of the finger down to to DIP has peeling skin, redness, paleness, black spot that is about dime sized. Radial pulses strong and present. Patient can barely bend the finger due to swelling. Skin is otherwise pink warm and dry. ) Labs LABS Laboratory Tests Test 02/23/20 16:32 02/23/20 20:11 02/24/20 07:06 02/24/20 07:50 Glucose (Fingerstick) 303 mg/dL (70-99) 292 mg/dL (70-99) 255 mg/dL (70-99) Creatinine 0.5 mg/dL (0.6-1.0) Estimated GFR (Cockcroft-Gault) 126.3 Test 02/24/20 10:30 02/24/20 13:28 02/24/20 13:44 02/24/20 15:05 Glucose (Fingerstick) 179 mg/dL (70-99) 48 mg/dL (70-99) 136 mg/dL (70-99) Vancomycin Level Trough 9.4 mcg/mL (10.0-20.0) Vancomycin Last Dose Date 02/24/20 Vancomycin Last Dose Time 0400 Review of Systems Review of Systems Review of systems pertinent as per HPI otherwise 14 point review of system is negative Assessment and Plan Assessmemt and Plan Problems Medical Problems: (1) Osteomyelitis Status: Acute Comment Review of Relevant I have reviewed the following items vangie (where applicable) has been applied. Labs Laboratory Tests Test 02/22/20 16:25 02/22/20 19:30 02/23/20 05:50 02/23/20 07:13 Urine Collection Type Unknown Urine Color Yellow Urine Clarity Clear Urine pH 6.0 (<5.0-8.0) Urine Specific [place] 1.010 (1.000-1.030) Urine Protein Negative mg/dL (NEG-TRACE) Urine Glucose (UA) >=1000 mg/dL (NEG) Urine Ketones (Stick) Negative mg/dL (NEG) Urine Blood Negative (NEG) Urine Nitrite Negative (NEG) Urine Bilirubin Negative (NEG) Urine Urobilinogen Dipstick 0.2 mg/dL (0.2 mg/dL) Urine Leukocyte Esterase Small (NEG) Urine RBC 0 /HPF (0-2) Urine WBC 1-4 /HPF (0-4) Urine Squamous Epithelial Cells Mod /LPF Urine Renal Epithelial Cells Occ /LPF Urine Bacteria 0 /HPF (0-FEW) SARS-CoV-2 Antigen (Rapid) Negative (NEGATIVE) Creatinine 0.6 mg/dL (0.6-1.0) Estimated GFR (Cockcroft-Gault) 102.3 Glucose (Fingerstick) 296 mg/dL (70-99) Test 02/23/20 08:42 02/23/20 10:30 02/23/20 13:09 02/23/20 16:32 Glucose (Fingerstick) 213 mg/dL (70-99) 213 mg/dL (70-99) 237 mg/dL (70-99) 303 mg/dL (70-99) Test 02/23/20 20:11 02/24/20 07:06 02/24/20 07:50 02/24/20 10:30 Glucose (Fingerstick) 292 mg/dL (70-99) 255 mg/dL (70-99) 179 mg/dL (70-99) Creatinine 0.5 mg/dL (0.6-1.0) Estimated GFR (Cockcroft-Gault) 126.3 Test 02/24/20 13:28 02/24/20 13:44 02/24/20 15:05 Glucose (Fingerstick) 48 mg/dL (70-99) 136 mg/dL (70-99) Vancomycin Level Trough 9.4 mcg/mL (10.0-20.0) Vancomycin Last Dose Date 02/24/20 Vancomycin Last Dose Time 0400 Laboratory Tests Test 02/23/20 16:32 02/23/20 20:11 02/24/20 07:06 02/24/20 07:50 Glucose (Fingerstick) 303 mg/dL (70-99) 292 mg/dL (70-99) 255 mg/dL (70-99) Creatinine 0.5 mg/dL (0.6-1.0) Estimated GFR (Cockcroft-Gault) 126.3 Test 02/24/20 10:30 02/24/20 13:28 02/24/20 13:44 02/24/20 15:05 Glucose (Fingerstick) 179 mg/dL (70-99) 48 mg/dL (70-99) 136 mg/dL (70-99) Vancomycin Level Trough 9.4 mcg/mL (10.0-20.0) Vancomycin Last Dose Date 02/24/20 Vancomycin Last Dose Time 0400 Microbiology 02/23/20 Gram Stain - Final, Resulted 02/23/20 Aerobic and Anaerobic Culture, Resulted Pending 02/22/20 Urine Culture - Final, Complete 02/22/20 Blood Culture - Preliminary, Resulted NO GROWTH AFTER 2 DAYS Medications Current Medications Sodium Chloride 1,000 ml @ 1,000 mls/hr 1X ONCE IV Last administered on 02/22/20at 15:16; Start 02/22/20 at 15:15; Stop 02/22/20 at 16:14; Status DC Vancomycin HCl (Vanco Per Pharmacy) 1 each PRN DAILY PRN MC SEE COMMENTS Last administered on 02/22/20at 19:18; Start 02/22/20 at 15:30 Vancomycin HCl 1.25 gm/Sodium Chloride 250 ml @ 166.667 mls/hr 1X ONCE IV Last administered on 02/22/20at 15:52; Start 02/22/20 at 16:00; Stop 02/22/20 at 1 7:29; Status DC Clindamycin Phosphate 50 ml @ 100 mls/hr 1X ONCE IV Last administered on 02/22/20at 16:42; Start 02/22/20 at 16:30; Stop 02/22/20 at 16:59; Status DC Ondansetron HCl (Zofran) 4 mg PRN Q8HRS PRN IV NAUSEA/VOMITING; Start 02/22/20 at 18:00; Stop 02/22/20 at 23:35; Status DC Fentanyl Citrate (Fentanyl 2ml Vial) 50 mcg PRN Q1HR PRN IV SEVERE PAIN 7-10 Last administered on 02/24/20at 11:49; Start 02/22/20 at 18:00 Sodium Chloride 1,000 ml @ 125 mls/hr Q8H IV Last administered on 02/23/20at 12:02; Start 02/22/20 at 18:00; Stop 02/23/20 at 17:59; Status DC Piperacillin Sod/ Tazobactam Sod 3.375 gm/Sodium Chloride 50 ml @ 100 mls/hr 1X ONCE IV Last administered on 02/22/20at 18:27; Start 02/22/20 at 18:00; Stop 02/22/20 at 18:29; Status DC Vancomycin HCl 750 mg/Sodium Chloride 250 ml @ 250 mls/hr Q12H IV Last administered on 02/24/20at 07:02; Start 02/23/20 at 04:00 Ondansetron HCl (Zofran) 4 mg PRN Q4HRS PRN IV NAUSEA/VOMITING 1ST CHOICE Last administered on 02/23/20at 12:06; Start 02/22/20 at 23:45 Insulin Glargine (Lantus Syringe) 8 unit QHS SQ Last administered on 02/23/20at 21:00; Start 02/22/20 at 23:45 Insulin Human Lispro (HumaLOG) 0-9 UNITS TIDWMEALS SQ Last administered on 02/24/20at 11:46; Start 02/23/20 at 08:00 Dextrose (Dextrose 50%-Water Syringe) 12.5 gm PRN Q15MIN PRN IV SEE COMMENTS; Start 02/22/20 at 23:45 Vancomycin HCl (Vanco Per Pharmacy) 1 each PRN DAILY PRN MC SEE COMMENTS; Start 02/22/20 at 23:45; Stop 02/22/20 at 23:56; Status DC Piperacillin Sod/ Tazobactam Sod (Zosyn Per Pharmacy) 1 each PRN DAILY PRN MC SEE COMMENTS; Start 02/22/20 at 23:45 Tramadol HCl (Ultram) 50 mg PRN Q6HRS PRN PO MODERATE PAIN 4-6 Last a dministered on 02/24/20at 10:12; Start 02/22/20 at 23:45 Piperacillin Sod/ Tazobactam Sod 3.375 gm/Sodium Chloride 50 ml @ 100 mls/hr Q6HRS IV Last administered on 02/24/20at 11:43; Start 02/23/20 at 00:00 Info (FLU VACCINE SCREEN per RX) 1 each PRN DAILY PRN MC SEE COMMENTS; Start 02/23/20 at 02:45; Status Cancel Bupivacaine HCl/ Epinephrine Bitart (Sensorcaine-Epi 0.25%-1:414686 Mpf) 30 ml 1X ONCE INJ Last administered on 02/23/20at 09:01; Start 02/23/20 at 07:30; Stop 02/23/20 at 07:32; Status DC Insulin Human Lispro (HumaLOG VIAL for OP,RR ONLY) 0-10 units PRN Q1HR PRN SQ PER PROTOCOL Last administered on 02/23/20at 10:33; Start 02/23/20 at 07:30; Stop 02/24/20 at 07:29; Status DC Fentanyl Citrate (Fentanyl 2ml Vial) 100 mcg STK-MED ONCE .ROUTE ; Start 02/23/20 at 07:19; Stop 02/23/20 at 07:19; Status DC Fentanyl Citrate (Fentanyl 2ml Vial) 100 mcg STK-MED ONCE .ROUTE ; Start 02/23/20 at 07:23; Stop 02/23/20 at 07:24; Status DC Lidocaine HCl (Lidocaine Pf 2% Vial) 5 ml STK-MED ONCE .ROUTE ; Start 02/23/20 at 07:24; Stop 02/23/20 at 07:24; Status DC Propofol (Diprivan) 200 mg STK-MED ONCE IV ; Start 02/23/20 at 07:24; Stop 02/23/20 at 07:24; Status DC Fentanyl Citrate (Fentanyl 2ml Vial) 25 mcg PRN Q5MIN PRN IV X 2 DOSES FOR PAIN Last administered on 02/23/20at 07:15; Start 02/23/20 at 07:30; Stop 02/23/20 at 12:00; Status DC Fentanyl Citrate (Fentanyl 2ml Vial) 100 mcg STK-MED ONCE .ROUTE ; Start 02/23/20 at 07:50; Stop 02/23/20 at 07:50; Status DC Ephedrine Sulfate (Akovaz) 50 mg STK-MED ONCE .ROUTE ; Start 02/23/20 at 08:53; Stop 02/23/20 at 08:53; Status DC Dexamethasone Sodium Phosphate (Decadron) 4 mg STK-MED ONCE .ROUTE ; Start 02/23/20 at 09:02; Stop 02/23/20 at 09:02; Status DC Ondansetron HCl (Zofran) 4 mg STK-MED ONCE .ROUTE ; Start 02/23/20 at 09:02; Stop 02/23/20 at 09:02; Status DC Sevoflurane (Ultane) 60 ml STK-MED ONCE IH ; Start 02/23/20 at 09:09; Stop 02/23/20 at 09:09; Status DC Ondansetron HCl (Zofran) 4 mg PRN Q6HRS PRN IV NAUSEA/VOMITING; Start 02/23/20 at 10:00; Stop 02/23/20 at 20:00; Status DC Fentanyl Citrate (Fentanyl 2ml Vial) 25 mcg PRN Q5MIN PRN IV MILD PAIN 1-3; Start 02/23/20 at 10:00; Stop 02/23/20 at 20:00; Status DC Fentanyl Citrate (Fentanyl 2ml Vial) 50 mcg PRN Q5MIN PRN IV MODERATE TO SEVERE PAIN Last administered on 02/23/20at 09:45; Start 02/23/20 at 10:00; Stop 02/23/20 at 20:00; Status DC Morphine Sulfate (Morphine Sulfate) 1 mg PRN Q10MIN PRN IV SEVERE PAIN 7-10; Start 02/23/20 at 10:00; Stop 02/24/20 at 09:59; Status DC Ringer's Solution 1,000 ml @ 30 mls/hr Q24H IV ; Start 02/23/20 at 10:00; Stop 02/23/20 at 21:59; Status DC Lidocaine HCl (Xylocaine-Mpf 1% 2ml Vial) 2 ml PRN 1X PRN ID PRIOR TO IV START; Start 02/23/20 at 10:00; Stop 02/23/20 at 20:00; Status DC Hydromorphone HCl (Dilaudid) 0.5 mg PRN Q10MIN PRN IV SEV PAIN, Second choice; Start 02/23/20 at 10:00; Stop 02/23/20 at 20:00; Status DC Prochlorperazine Edisylate (Compazine) 5 mg PACU PRN PRN IV NAUSEA, MRX1; Start 02/23/20 at 10:00; Stop 02/23/20 at 20:00; Status DC Multivitamins (Thera M Plus) 1 tab DAILY PO Last administered on 02/24/20at 07:55; Start 02/23/20 at 12:00 Influenza Virus Vaccine Quadrival (Fluzone Quad Syringe) 0.5 ml ONCE ONCE VAX IM ; Start 02/23/20 at 18:30; Stop 02/23/20 at 18:35; Status DC Vancomycin HCl (Vancomycin Trough Level) 1 each 1X ONCE MC ; Start 02/24/20 at 15:30; Stop 02/24/20 at 15:31; Status DC Active Scripts Active Naproxen 500 Mg Tablet 1 Tab PO BID [place] 5-325 Tablet (Acetaminophen/Hydrocodone Bitart) 1 Each Tablet 1 Tab PO Q6- 8HRS PRN Bactrim Ds Tablet (Sulfamethoxazole/Trimethoprim) 1 Each Tablet 1 Tab PO BID 10 Days Zithromax (Azithromycin) 250 Mg Tablet 1 Pkg PO UD Diclofenac Sodium 50 Mg Tablet.dr 1 Tab PO BID PRN Reported Synthroid (Levothyroxine Sodium) 100 Mcg Tablet 1 Tab PO DAILY Metformin Hcl Er (Metformin Hcl) 1,000 Mg Tab.er.24 1,000 Mg PO BIDAC Vitals/I & O Vital Sign - Last 24 Hours 02/23/20 02/23/20 02/23/20 02/24/20 19:00 20:00 23:12 02:59 Temp 98.6 98.0 98.6 98.0 Pulse 82 74 Resp 16 18 B/P (MAP) 107/62 (77) 114/62 (79) Pulse Ox 97 97 O2 Delivery Room Air Room Air Room Air Room Air 02/24/20 02/24/20 02/24/20 02/24/20 03:01 03:30 07:00 07:06 Temp 98.2 99.9 98.2 99.9 Pulse 74 75 Resp 18 18 B/P (MAP) 109/61 (77) 117/67 (84) Pulse Ox 95 99 O2 Delivery Room Air Room Air Room Air Room Air 02/24/20 02/24/20 02/24/20 02/24/20 07:36 08:00 10:12 11:00 Temp 99.8 99.8 Pulse 73 Resp 16 B/P (MAP) 151/88 (109) Pulse Ox 100 O2 Delivery Room Air Room Air Room Air Room Air 02/24/20 02/24/20 02/24/20 02/24/20 11:12 11:49 12:19 15:00 Temp 98.9 98.9 Pulse 73 Resp 16 B/P (MAP) 115/67 (83) Pulse Ox 99 O2 Delivery Room Air Room Air Room Air Room Air Intake and Output 02/23/20 02/23/20 02/24/20 15:00 23:00 07:00 Intake Total 1250 ml 600 ml Output Total 10 ml 0 ml Balance 1240 ml 600 ml 0 ml Nutrition Consultation Dietary Evaluation: Recommendations by RD: Dietary education by RD, Increase Calorie Intake, Protein supplementation Comments: REC Glucerna bid cookie bid continue mvi Expected Outcomes/Goals: to meet >75% est nutr needs Malnutrition Findings: Body Fat Depletion (Non Severe: Mild Depletion Weight Status: Underweight Justicifation of Admission Dx: Justifications for Admission: Justification of Admission Dx: Comment: (osteomyelitis) JOSELITO HI MD Feb 24, 2020 16:14
--- NOTE | 2020-02-24 17:03 | NUR ---
Insulin dose held, patient is not eating dinner and refuses to take insulin d/t blood sugar going very low earlier.
[2020-02-24 19:00] VITALS: BP 129/69
[2020-02-24] MEDS ORDERED: INSULIN GLARGINE SYRINGE. SQ SCH (21:00)
[2020-02-24] MEDS ORDERED: ZOLPIDEM 5 MG TABLET. PO PRN (21:00)
[2020-02-24 23:03] VITALS: BP 124/70
[2020-02-25 03:06] VITALS: BP 103/55
[2020-02-25] MEDS: PIPERACILLIN/TAZOBACTAM 3.375 GM in IV NORMAL SALINE 50ML 50 ML IV SCH ×3 (05:57→18:00)
[2020-02-25 07:00] VITALS: BP 127/61
[2020-02-25] MEDS: MULTIVITAMIN with MINERAL TABLET. PO SCH (08:09)
[2020-02-25] MEDS: INSULIN LISPRO 300 UNITS/3 ML VIAL. SQ SCH ×3 (08:15→17:00)
[2020-02-25 09:05] LABS: CREATININE 0.5 mg/dL (0.6-1.0); GFR 126.3
[2020-02-25 11:00] VITALS: BP 130/62
[2020-02-25 15:00] VITALS: BP 124/64
[2020-02-25] MEDS: fentaNYL PF VIAL 100 MCG/2 ML VIAL IV PRN (15:37)
--- NOTE | 2020-02-25 15:45 | PDOC ---
PROGRESS NOTES Date of Service DATE: 02/25/20 TIME: 15:44 Subjective Subjective no complaints. wants to go home. Objective Vital Signs Vital Signs Date Time Temp Pulse Resp B/P (MAP) Pulse Ox O2 Delivery O2 Flow Rate FiO2 02/25/20 15:37 Room Air 02/25/20 15:00 97.8 70 16 124/64 (84) 93 97.8 02/23/20 09:45 5 Physical Exam The dressing was removed. There is slight bloody drainage. The suture ends incision is intact without evidence of ongoing infection. Labs Laboratory Tests Test 02/23/20 16:32 02/23/20 20:11 02/24/20 07:06 02/24/20 07:50 Glucose (Fingerstick) 303 mg/dL (70-99) 292 mg/dL (70-99) 255 mg/dL (70-99) Creatinine 0.5 mg/dL (0.6-1.0) Estimated GFR (Cockcroft-Gault) 126.3 Test 02/24/20 10:30 02/24/20 13:28 02/24/20 13:44 02/24/20 15:05 Glucose (Fingerstick) 179 mg/dL (70-99) 48 mg/dL (70-99) 136 mg/dL (70-99) Vancomycin Level Trough 9.4 mcg/mL (10.0-20.0) Vancomycin Last Dose Date 02/24/20 Vancomycin Last Dose Time 0400 Test 02/24/20 16:29 02/24/20 20:04 02/25/20 07:10 02/25/20 08:16 Glucose (Fingerstick) 365 mg/dL (70-99) 328 mg/dL (70-99) 245 mg/dL (70-99) Creatinine 0.5 mg/dL (0.6-1.0) Estimated GFR (Cockcroft-Gault) 126.3 Test 02/25/20 11:08 Glucose (Fingerstick) 252 mg/dL (70-99) Laboratory Tests Test 02/24/20 16:29 02/24/20 20:04 02/25/20 07:10 02/25/20 08:16 Glucose (Fingerstick) 365 mg/dL (70-99) 328 mg/dL (70-99) 245 mg/dL (70-99) Creatinine 0.5 mg/dL (0.6-1.0) Estimated GFR (Cockcroft-Gault) 126.3 Test 02/25/20 11:08 Glucose (Fingerstick) 252 mg/dL (70-99) Assessment Assessment Status post fingertip amputation for osteomyelitis Plan Plan of Care Okay to discharge home. Daily dressing changes and apply Band-Aid. Soap and w ater is fine. Office follow-up. Justicifation of Admission Dx: Justifications for Admission: Justification of Admission Dx: Comment: (osteomyelitis) SHAUN TAFOYA MD Feb 25, 2020 15:45
[2020-02-25] MEDS ORDERED: AMOX1TAB61 PO (16:24)
[2020-02-25] MEDS ORDERED: OXYC-325 PO (16:24)
[2020-02-25] MEDS ORDERED: GLYB5TAB3 PO (17:00)
--- NOTE | 2020-02-25 17:59 | PDOC3 ---
Discharge Summary Visit Information Date of Admission: Feb 22, 2020 Date of Discharge: Feb 25, 2020 Admitting Diagnosis Comment: Right 3rd finger cellulitis - with abscess. Will likely need surgical I&D. Pain control, Add zosyn for gram negative coverage, cont vancomycin. Rapid covid 19 test ordered DM2 - sliding scale, lantus Hyponatremia - likely hypovolemic, will hydrate Final Diagnosis Problems Medical Problems: (1) Osteomyelitis Status: Acute Right 3rd finger cellulitis - with abscess.Gram positive rods growing on cultures, infectious process per much resolved after amputation DM2 -on Metformin and most likely glyburide Hyponatremia - likely hypovolemic, will hydrate Hypoglycemic event Brief Hospital Course Allergies Allergies Coded Allergies Type Severity Reaction Last Updated Verified No Known Drug Allergies 02/11/20 No Vital Signs Vital Signs Date Time Temp Pulse Resp B/P (MAP) Pulse Ox O2 Delivery O2 Flow Rate FiO2 02/25/20 16:33 Room Air 02/25/20 15:00 97.8 70 16 124/64 (84) 93 97.8 Lab Results Laboratory Tests Test 02/23/20 20:11 02/24/20 07:06 02/24/20 07:50 02/24/20 10:30 Glucose (Fingerstick) 292 mg/dL (70-99) 255 mg/dL (70-99) 179 mg/dL (70-99) Creatinine 0.5 mg/dL (0.6-1.0) Estimated GFR (Cockcroft-Gault) 126.3 Test 02/24/20 13:28 02/24/20 13:44 02/24/20 15:05 02/24/20 16:29 Glucose (Fingerstick) 48 mg/dL (70-99) 136 mg/dL (70-99) 365 mg/dL (70-99) Vancomycin Level Trough 9.4 mcg/mL (10.0-20.0) Vancomycin Last Dose Date 02/24/20 Vancomycin Last Dose Time 0400 Test 02/24/20 20:04 02/25/20 07:10 02/25/20 08:16 02/25/20 11:08 Glucose (Fingerstick) 328 mg/dL (70-99) 245 mg/dL (70-99) 252 mg/dL (70-99) Creatinine 0.5 mg/dL (0.6-1.0) Estimated GFR (Cockcroft-Gault) 126.3 Test 02/25/20 16:55 Glucose (Fingerstick) 169 mg/dL (70-99) Laboratory Tests Test 02/24/20 20:04 02/25/20 07:10 02/25/20 08:16 02/25/20 11:08 Glucose (Fingerstick) 328 mg/dL (70-99) 245 mg/dL (70-99) 252 mg/dL (70-99) Creatinine 0.5 mg/dL (0.6-1.0) Estimated GFR (Cockcroft-Gault) 126.3 Test 02/25/20 16:55 Glucose (Fingerstick) 169 mg/dL (70-99) Brief Hospital Course History of Present Illness Ms Maldonado is a 59 year old female 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 She states that sharp and shooting. Notes the dorsum of finger and now her hand are red, swollen, hot, and having sharp shooting pains. Patient was seen for this on February 10 and given bactrim for paronychia. Patient rates her pain at 9 out of 10. Patient denies fevers, nausea or vomiting, chills. Right Hand radiograph with absent cortex along the proximal radial aspect of the third distal phalanx with overlying soft tissue swelling, concerning for osteomyelitis. Labs with WBC 9, Hb 13.7, platelets 275, Na 133, K 4.2, BUN 8, Cr 0.5, Lactate 1.5, glucose 306. Admitted for further treatment. Patient had a very uneventful hospital stay.The patient responded well after institution of pain management with the IV form. Subsequently she was deescalated to Percocet. She was seen postop by Dr. Berry and deemed appropriate for discharge with instructions to follow-up with him in the outpatient setting. We will give her a prescription for Augmentin for 7 more days to continue with antibiotic therapy but given that the patient did not grow MRSA she will be well covered with Augmentin. Gram-negative rods were isolated but culture was reported mainly is negative. Given the amputation of her finger this has resolved infection and she will be recovering in the postop. Glycemia was well controlled prior to discharge with a reading of 163 the patient is on Metformin glyburide at home I have provided with a prescription since she could not remember all of her medication and encouraged her to follow-up with her primary care physician as soon as possible in order to address her diabetes. Greater than 40 minutes were spent in the discharge process the patient counseling coordination of care and arrangements for safe discharge signs and symptoms of alarm discussed in detail all of her concerns addressed to the best of my abilities Discharge Information Condition at Discharge: Improved Follow Up: Weeks Disposition/Orders: D/C to Home Scheduled Amoxicillin/Potassium Clav (Augmentin 875-125 Tablet) 1 Each Tablet, 1 TAB PO BID for diabetic ulcer for 7 Days, #14 Ref 0 Prescribed by: JOSELITO HI MD on 02/25/20 1624 Glyburide (Glyburide) 5 Mg Tablet, 1 TAB PO BID for DM, #60 Ref 5 Prescribed by: JOSELITO HI MD on 02/25/20 1700 Levothyroxine Sodium (Synthroid) 100 Mcg Tablet, 1 TAB PO DAILY for hypothyroid, #30 Ref 5 (Reported) Entered as Reported by: PREMA ANGELO RN on 02/23/20253 Last Action: New Order on 02/23/20253 by PREMA ANGELO RN Metformin Hcl (Metformin Hcl Er) 1,000 Mg Tab.er.24, 1,000 MG PO BIDAC for ANTI- DIABETIC, Ref 0 (Reported) Entered as Reported by: PREMA ANGELO RN on 02/23/20253 Last Taken: Unknown Dose on 02/22/20 Last Action: New Order on 02/23/20253 by PREMA ANGELO RN Scheduled PRN Oxycodone HCl/Acetaminophen (Percocet 5-325 mg Tablet) 1 Each Tablet, 1 TAB PO QIDPRN PRN for PAIN MDD 4 Tablet(s) for 5 Days, #20 Ref 0 Prescribed by: JOSELITO HI MD on 02/25/20 1624 Discontinued Medications Azithromycin (Zithromax) 250 Mg Tablet, 1 PKG PO UD, #6 Prescribed by: WILVER DONG D.O. on 06/09/19 0412 Diclofenac Sodium (Diclofenac Sodium) 50 Mg Tablet.dr, 1 TAB PO BID PRN for PAIN, #20 Prescribed by: WILVER DONG D.O. on 06/09/19 0237 Hydrocodone/Apap 5-325 ([place] 5-325 Tablet) 1 Each Tablet, 1 TAB PO Q6-8HRS PRN for PAIN, #12 Prescribed by: Sondra Wright APRN on 02/11/20 1648 Naproxen (Naproxen) 500 Mg Tablet, 1 TAB PO BID for pain, #30 Ref 0 Prescribed by: Sondra Wright APRN on 02/11/20 1648 Sulfamethoxazole/Trimethoprim (Bactrim Ds Tablet) 1 Each Tablet, 1 TAB PO BID for 10 Days, #20 Ref 0 Prescribed by: Sondra Wright APRN on 02/11/20 1648 Justicifation of Admission Dx: Justifications for Admission: Justification of Admission Dx: Comment: (osteomyelitis) JOSELITO HI MD Feb 25, 2020 17:59
--- NOTE | 2020-02-25 18:59 | NUR ---
Patient discharge home today with self care, ambulate, accompany by aid and family members. Patient is stable, IV removed, prescription and discharge paperwork given to patient. Patient and son verbalized understanding of discharge instruction and followup appointment.
--- NOTE | 2020-03-01 09:22 | PATHOLOGY ---
[facility] Accession Number: [id number] . 01 Material submitted: . finger - RIGHT HAND MIDDLE FINGER PARTIAL AMPUTATION. Modifiers: right, middle . 01 Clinical history: . OSTEOMYELITIS . 02 Diagnosis: Right hand middle finger partial amputation: - Focal ulceration of skin and gangrenous necrosis of finger with extensive acute cellulitis and acute osteomyelitis. (JPM:pit 02/29/2020) QTP 02/29/2020 0902 Local . 02 Electronically signed: . Kevin Treviño MD, Pathologist NPI- [id number] . 01 Gross description: . The specimen is received in formalin, labeled "Cristina Sanchez, right hand middle finger partial amputation" and consists of a disarticulated distal aspect of finger measuring 2.6 x 1.9 x 1.9 cm. The nail is present which is goldsmith and smooth. The skin is flaky with a possible ulcerative lesion on the medial aspect measuring 1.5 x 1.1 cm. Sectioning reveals soft cut surfaces and the specimen is entirely submitted in A1-A3 following decalcification. (SDY; 02/27/2020) SYU/SYU 02/29/2020 0900 Local . 02 Pathologist provided ICD-10: L98.499, M86.141, L03.011 . 02 CPT . 809535, 479117 Specimen Comment: A courtesy copy of this report has been sent to [phone] Specimen Comment: Report sent to Specimen Comment: A duplicate report has been generated due to demographic updates. Performed at: [address], [place], [place] [id number] MD Mauro Queen MD Phone: [phone] Performed at: 02 [facility] [address], [place] [id number] MD Kevin Treviño MD Phone: [phone]
== END 2020-02-25 18:30 | disposition home or self-care (01) | DRG 988 ==
LOC: ER 12:55 → ED HOLD 16:57 → 4 NORTH 22:56
PROVIDERS: ADMIT Internal Medicine; ATTEND Internal Medicine
PROC: 0X6Q0Z3 Detachment at Right Middle Finger, Low, Open Approach (ICD-10-PCS; principal; 2020-02-23 08:00)
DX: E11.69 Type 2 diabetes mellitus with other specified complication (principal); M86.041 Acute hematogenous osteomyelitis, right hand; E87.1 Hypo-osmolality and hyponatremia; L03.113 Cellulitis of right upper limb; E03.9 Hypothyroidism, unspecified; E11.649 Type 2 diabetes mellitus with hypoglycemia without coma; E86.1 Hypovolemia; L03.011 Cellulitis of right finger; G56.03 Carpal tunnel syndrome, bilateral upper limbs; Z20.822 Contact with and (suspected) exposure to COVID-19; Z83.3 Family history of diabetes mellitus; Z90.710 Acquired absence of both cervix and uterus
CPT/HCPCS: 36415; 73130; 80053; 80202; 81001; 82565; 82962; 83605; 85025; 86140; 87040; 87071; 87075; 87077; 87086; 87426; 88304; 88311; 96365; 96366; 96368; 99285; J1100; J1815; J2405; J2543; J2704; J3010; J3370; J3490; J7030; J7050; U0003; A4461; G0378

== ENCOUNTER 2020-03-02 13:03 | Emergency (ER) | payer BC ==
[~2020-03-02] VITALS: Ht 154.9 cm; Wt 45.0 kg
[~2020-03-02 13:03] MED LIST changes: +AMOX1TAB61 PO; +GLYB5TAB3 PO; +LEVO-101 PO; +METF100010 PO; +OXYC-325 PO
[2020-03-02 13:35] VITALS: BP 146/87
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
[2020-03-02] MEDS ORDERED: AMOX1TAB61 PO (14:33)
== END 2020-03-02 15:00 | disposition home or self-care (01) ==
LOC: ER 13:03
DX: S61.212A Laceration without foreign body of right middle finger without damage to nail, initial encounter (principal); E11.9 Type 2 diabetes mellitus without complications; Z90.710 Acquired absence of both cervix and uterus; Z98.890 Other specified postprocedural states; X58.XXXA Exposure to other specified factors, initial encounter; Y93.9 Activity, unspecified; Y92.89 Other specified places as the place of occurrence of the external cause; Y99.8 Other external cause status
CPT/HCPCS: 99283